=== PATIENT | male | born 2000 | race Caucasian/White ===

== ENCOUNTER 2022-05-30 19:26 | Emergency (ER) | payer BC, SELFPAY ==
--- NOTE | ~2022-05-30 | XR_ITS ---
EXAM: XR hand RT min 3V DATE: 05/30/2022 19:55 HISTORY: pain Rt thumb, injury playing basketball this P.M. . COMPARISON: None available. FINDINGS: Normal mineralization. No fracture or dislocation. No lytic or blastic lesion. Joint space s are maintained. No erosion or periosteal change. Soft tissues within normal limits. IMPRESSION: No acute osseous finding in the right hand. Reviewed, dictated and finalized at location K.
[2022-05-30 19:33] VITALS: BP 118/81; PULSE 54; RESP 16; TEMP 37.4; O2SAT 98
--- NOTE | 2022-05-30 20:54 | ED.UPPEXIN ---
HPI - Extremity Injury (Upper) General Chief Complaint: Extremity Injury, Upper <Elke Marques PA-C - Last Filed: 05/30/22 20:59> Stated Complaint: right thumb injury <MOHINI Carson Last Filed: 05/30/22 20:59> Time Seen by Provider: 05/30/22 19:43 <Elke Marques PA-C - Last Filed: 05/30/22 20:59> Source: patient <MOHINI Carson Last Filed: 05/30/22 20:59> Mode of arrival: ambulatory <MOHINI Carson Last Filed: 05/30/22 20:59> Limitations: no limitations <MOHINI Carson Last Filed: 05/30/22 20:59> History of Present Illness HPI narrative: This is a 21 year old male that presents to the ER for right hand injury sustained just prior to arrival. Reports he was playing volleyball and was hit in the right thumb with the ball. Reports pain with active ROM in the right thumb. Denies decreased ROM or numness. <Elke Marques PA-C - Last Filed: 05/30/22 20:59> Related Data Allergies/Adverse Reactions: Allergies Allergy/AdvReac Type Severity Reaction Status Date / Time No Known Allergies Allergy Verified 05/30/22 19:27 <Elke Marques PA-C - Last Filed: 05/30/22 20:59> Review of Systems Review of Systems: CONSTITUTIONAL: Denies fever MUSCULOSKELETAL: Reports joint pain, and myalgia. NEUROLOGIC: Denies numbness, or weakness. <MOHINI Carson Last Filed: 05/30/22 20:59> All systems reviewed & are unremarkable except as noted in HPI and below <MOHINI Carson Last Filed: 05/30/22 20:59> [facility] Past Medical History Medical History: Medical History (Updated 05/31/22 @ 00:00 by Background Daemon) No active medical problems <MOHINI Carson Last Filed: 05/30/22 20:59> Social History Social History: Social History (Updated 05/30/22 @ 20:57 by Elke Marques PA-C) Smoking status: Never smoker <Elke Marques PA-C - Last Filed: 05/30/22 20:59> Exam Narrative: GENERAL: Well-appearing, well-nourished, and in no acute distress. HEAD: Normocephalic, atraumatic. EYES: EOMI. EXTREMITIES: Normal range of motion. No edema or obvious deformity. Normal radial pulse. Normal sensation SKIN: Warm, dry, no rash. NEURO: No focal deficits. Alert and oriented x3. PSYCH: Normal mood and affect <Elke Marques PA-C - Last Filed: 05/30/22 20:59> Course NEONATAL SOCIAL WORKER/PA Physician Supervision For this patient encounter, I reviewed the NEONATAL SOCIAL WORKER or PA documentation, treatment plan, and medical decision making. <Zaina Puckett MD - Last Filed: 06/16/22 13:49> Vital Signs Vital signs: Vital Signs Temperature 99.3 F 05/30/22 19:33 Pulse Rate 54 L 05/30/22 19:33 Respiratory Rate 16 05/30/22 19:33 Blood Pressure 118/81 05/30/22 19:33 Pulse Oximetry 98 05/30/22 19:33 Oxygen Delivery Room Air 05/30/22 19:33 Temperature 99.3 F 05/30/22 19:33 Pulse Rate 54 L 05/30/22 19:33 Respiratory Rate 16 05/30/22 19:33 Blood Pressure 118/81 05/30/22 19:33 Pulse Oximetry 98 05/30/22 19:33 Oxygen Delivery Room Air 05/30/22 19:33 <Elke Marques PA-C - Last Filed: 05/30/22 20:59> Vital Signs Temperature 99.3 F 05/30/22 19:33 Pulse Rate 54 L 05/30/22 19:33 Respiratory Rate 16 05/30/22 19:33 Blood Pressure 118/81 05/30/22 19:33 Pulse Oximetry 98 05/30/22 19:33 Oxygen Delivery Room Air 05/30/22 19:33 Temperature 99.3 F 05/30/22 19:33 Pulse Rate 54 L 05/30/22 19:33 Respiratory Rate 16 05/30/22 19:33 Blood Pressure 118/81 05/30/22 19:33 Pulse Oximetry 98 05/30/22 19:33 Oxygen Delivery Room Air 05/30/22 19:33 <Zaina Puckett MD - Last Filed: 06/16/22 13:49> MDM - Extremity Injury (Upper) MDM Narrative Medical decision making narrative: Patient presents emergency department for right first finger injury sustained just prior to arrival. Patient is neurovascularly intact. Right hand x-ray without acute osseou
== END 2022-05-30 21:38 | disposition home or self-care (01) ==
PROVIDERS: Emergency Provider Emergency Medicine
DX: S63.621A Sprain of interphalangeal joint of right thumb, initial encounter (principal); W21.06XA Struck by volleyball, initial encounter; Y93.68 Activity, volleyball (beach) (court)
CPT/HCPCS: 73130; 99283